=== PATIENT | female | born 1950 | race African-American/Black ===

== ENCOUNTER 2016-07-06 08:02 | Emergency (ER) | payer MEDICARE, MEDICAID ==
[~2016-07-06 08:02] MED LIST: LORTA5 PO; OMEP20CA5 PO; PROM25SU8 PO
[2016-07-06 08:11] VITALS: BP_SYST 211; BP_SYST 233; BP_DIAS 100; BP_DIAS 98; PULSE 90; RESP 15; TEMP 98.1; O2SAT 97
--- NOTE | 2016-07-06 08:21 | PD ---
HPI Chief Complaint: Headache Time Seen by Provider: 08:18 Travel History International Travel<30 days: No Contact w/Intl Traveler<30days: No Traveled to known affect area: No History of Present Illness HPI 65-year-old female came to the emergency room with history of headache. Her blood pressure in triage was 233 systolic. Patient says that the headache started yesterday at 8 PM while she was watching TV. It's like a pounding headache and everywhere hurts in her head. Currently the pain is 8 out of 10. She has had pounding headache every now and then but it has never been this bad in lasted this long. She is also seeing some black floating spots occasionally. They are the size of a mole she said. Patient has never been to a doctor in many years. She is not on any medications and she is a smoker. [facility] Past Medical History Narrative Medical List of her past medical history is reviewed from the nursing note. Medical History: Denies Significant Hx Hypertension: Yes ?: Not Menopausal: Yes Past Surgical History Other Surgery: Yes (cyst) Social History Alcohol Use: Yes (2 BEERS DAILY) Tobacco Use: Yes (1/2PPD) Substance Use: No Allergies-Medications (Allergen,Severity, Reaction): Coded Allergies: Penicillin (Verified Allergy, Severe, RASH, 07/06/16) White Fish (Verified Allergy, Severe, Rash, 07/06/16) throat swelling Uncoded Allergies: POWDERED GLOVES (Allergy, Severe, RASH, 09/18/11) Comments List of her allergies reviewed from the nursing note. Reported Meds & Prescriptions Reported Meds & Active Scripts Active Losartan-Hydrochlorothiazide 50-12.5 Mg Tab 1 Tab PO DAILY Narrative Medication List of her home medications reviewed from the nursing note. Review of Systems Except as stated in HPI: all other systems reviewed are Neg Physical Exam Narrative GENERAL: Awake, alert, mild distress SKIN: Warm and dry. HEAD: Atraumatic. Normocephalic. EYES: Pupils equal and round. No scleral icterus. No injection or drainage. ENT: No nasal bleeding or discharge. Mucous membranes pink and moist. NECK: Trachea midline. No JVD. CARDIOVASCULAR: Regular rate and rhythm. No murmur appreciated. RESPIRATORY: No accessory muscle use. Clear to auscultation. Breath sounds equal bilaterally. GASTROINTESTINAL: Abdomen soft, non-tender, nondistended. Hepatic and splenic margins not palpable. MUSCULOSKELETAL: No obvious deformities. No clubbing. No cyanosis. No edema. NEUROLOGICAL: Awake and alert. No obvious cranial nerve deficits. Motor grossly within normal limits. Normal speech. PSYCHIATRIC: Appropriate mood and affect; insight and judgment normal. Data Data Last Documented VS Vital Signs Date Time Temp Pulse Resp B/P Pulse Ox O2 Delivery O2 Flow Rate FiO2 07/06/16 10:19 70 16 163/82 97 Room Air 07/06/16 08:11 98.1 Orders Complete Blood Count With Diff (07/06/16 08:25) Basic Metabolic Panel (Bmp) (07/06/16 08:25) Ct Brain W/O Iv Contrast(Rout) (07/06/16 08:25) Ecg Monitoring (07/06/16 08:25) Iv Access Insert/Monitor (07/06/16 08:25) Oximetry (07/06/16 08:25) Sodium Chloride 0.9% Flush (Ns Flush) (07/06/16 08:30) Labetalol Inj (Trandate Inj) (07/06/16 08:30) Acetaminophen (Tylenol) (07/06/16 08:30) Electrocardiogram (07/06/16 ) Losartan (Cozaar) (07/06/16 09:30) Labs Laboratory Tests Test 07/06/16 08:30 White Blood Count 4.8 TH/MM3 Red Blood Count 4.78 MIL/MM3 Hemoglobin 13.8 GM/DL Hematocrit 41.5 % Mean Corpuscular Volume 86.9 FL Mean Corpuscular Hemoglobin 29.0 PG Mean Corpuscular Hemoglobin 33.4 % Concent Red Cell Distribution Width 15.0 % Platelet Count 176 TH/MM3 Mean Platelet Volume 8.4 FL Neutrophils (%) (Auto) 50.7 % Lymphocytes (%) (Auto) 38.2 % Monocytes (%) (Auto) 9.0 % Eosinophils (%) (Auto) 1.4 % Basophils (%) (Auto) 0.7 % Neutrophils # (Auto) 2.4 TH/MM3 Lymphocytes # (Auto) 1.8 TH/MM3 Monocytes # (Auto) 0.4 TH/MM3 Eosinophils # (Auto) 0.1 TH/MM3 Basophils # (Auto) 0.0 TH/MM3 CBC Comment DIFF FINAL Differential Comment Sodium Level 138 MEQ/L Potassium Level 3.7 MEQ/L Chloride Level 105 MEQ/L Carbon Dioxide Level 26.9 MEQ/L Anion Gap 6 MEQ/L Blood Urea Nitrogen 13 MG/DL Creatinine 0.89 MG/DL Estimat Glomerular Filtration 77 ML/MIN Rate Random Glucose 124 MG/DL Calcium Level 8.4 MG/DL [facility] Medical Decision Making Medical Screen Exam Complete: Yes Emergency Medical Condition: Yes Medical Record Reviewed: Yes Interpretation(s) Twelve-lead EKG was reviewed by me. Normal sinus rhythm, normal axis, right bundle branch block. Heart rate of 81 bpm. Differential Diagnosis Hypertensive crisis, subarachnoid hemorrhage Narrative Course 8:34 AM patient was given IV labetalol 20 mg and by mouth Tylenol for the headache. Awaiting for the blood test and the CAT scan to be done and resulted. 9:30 AM blood test results of back and within normal limit. Head CT is negative. Blood pressure has come down to 162 systolic. Ordered a dose of losartan and I will send her home with losartan/hydrochlorothiazide prescription. Patient will require to be seen by primary care. Patient now says her headache is much better. I'm comfortable discharging her. Procedures EKG Prior to Arrival: No Diagnosis Primary Impression: Hypertensive urgency Additional Impressions: Headache Qualified Code: R51 - Acute intractable headache, unspecified headache type Floaters in visual field Qualified Code: H43.393 - Floaters in visual field, bilateral Referrals: [facility] 1 week Departure Forms: Tests/Procedures, Work Release Enter return to work date: Jul 08, 2016 Additional Instructions: Please return to the ER if the condition worsens or any other new concerns. Otherwise follow-up with the group whose name and number has been provided to you. Take the medication as per the prescription direction. Check blood pressure routinely. Med/Other Pt SpecificInfo: Prescription(s) given Scripts Losartan-Hydrochlorothiazide 50-12.5 Mg Tab1 Tab PO DAILY #30 TAB Ref 0 Prov:Gustabo Love MD 07/06/16 Disposition: 01 DISCHARGE HOME Condition: Stable Gustabo Love MD Jul 06, 2016 08:21 Gustabo Love MD Jul 06, 2016 08:21
[2016-07-06 08:28] VITALS: RESP 16; O2SAT 98
[2016-07-06] MEDS ORDERED: ACETAMINOPHEN 325 MG TAB PO ONE (08:30)
[2016-07-06] MEDS ORDERED: LABETALOL HCL 100 MG/20 ML VIAL IV PUSH ONE (08:30)
[2016-07-06] MEDS ORDERED: SODIUM CHLORIDE 0.9% FLUSH 5 ML FLUSH IVF PRN (08:30)
[2016-07-06 08:46] LABS: AUTOMATED NEUTROPHIL # 2.4 TH/MM3 (1.8-7.7); BASOPHIL % 0.7 % (0.0-2.0); EOSINOPHIL # 0.1 TH/MM3 (0-0.4); EOSINOPHIL % 1.4 % (0.0-4.0); HEMATOCRIT 41.5 % (35.0-46.0); HEMO FLAGS DIFF FINAL; LYMPH % 38.2 % (9.0-44.0); LYMPHOCYTE # 1.8 TH/MM3 (1.0-4.8); MEAN CELL VOLUME 86.9 FL (80.0-100.0); MEAN CORPUSCULAR HGB CONC 33.4 % (32.0-36.0); NEUT % 50.7 % (16.0-70.0); PLATELET COUNT 176 TH/MM3 (150-450); RED BLOOD COUNT 4.78 MIL/MM3 (4.00-5.30); WHITE BLOOD COUNT 4.8 TH/MM3 (4.0-11.0)
[2016-07-06 09:02] LABS: BICARBONATE 26.9 MEQ/L (21.0-32.0); POTASSIUM 3.7 MEQ/L (3.5-5.1)
--- NOTE | 2016-07-06 09:09 | RADRPT ---
EXAM DATE/TIME: 07/06/2016 08:46 [facility] COMPARISON: No previous studies available for comparison. INDICATIONS : Hypertension, cephalgia. RADIATION DOSE: 56.35 CTDIvol (mGy) MEDICAL HISTORY : Hypertension. SURGICAL HISTORY : None. ENCOUNTER: Initial ACUITY: 1 day PAIN SCALE: 5/10 LOCATION: Bilateral cranial TECHNIQUE: Multiple contiguous axial images were obtained of the head. Using automated exposure control and adj ustment of the mA and/or kV according to patient size, radiation dose was kept as low as reasonably a chievable to obtain optimal diagnostic quality images. FINDINGS: CEREBRUM: The ventricles are normal for age. No evidence of midline shift, mass lesion, hemorrhage or acute in farction. No extra-axial fluid collections are seen. POSTERIOR FOSSA: The cerebellum and brainstem are intact. The 4th ventricle is midline. The cerebellopontine angle i s unremarkable. EXTRACRANIAL: The visualized portion of the orbits is intact. SKULL: The calvaria is intact. No evidence of skull fracture. CONCLUSION: Unremarkable examination. Lexa Gan MD on July 06, 2016 at 9:07 Board Certified Radiologist. This report was verified electronically.
[2016-07-06] MEDS ORDERED: LOSA50TA2 PO (09:29)
[2016-07-06] MEDS ORDERED: LOSARTAN 50 MG TAB PO ONE (09:30)
[2016-07-06 10:19] VITALS: BP 163/82; PULSE 70; RESP 16; O2SAT 97
--- NOTE | 2016-07-06 20:50 | EKG ---
Date Performed: 07/06/2016 Time Performed: 08:23:51 PTAGE: 65 years EKG: Sinus rhythm POSSIBLE INFERIOR MYOCARDIAL INFARCTION BORDERLINE ECG PREVIOUS TRACING : 04/06/2012 12.16 DOCTOR: Delgado Mosher Interpretating Date/Time 07/06/2016 20:50:10
== END 2016-07-06 10:50 | disposition home or self-care (01) ==
LOC: NEPE 08:02
DX: I16.0 Hypertensive urgency (principal); R51 Headache; H43.393 Other vitreous opacities, bilateral; R94.31 Abnormal electrocardiogram [ECG] [EKG]; F17.200 Nicotine dependence, unspecified, uncomplicated
CPT/HCPCS: 70450; 80048; 85025; 93005; 96374

== ENCOUNTER 2016-12-06 08:52 | Emergency (ER) | payer MEDICARE, MEDICAID ==
[~2016-12-06] VITALS: Ht 165.1 cm; Wt 75.0 kg
[~2016-12-06 08:52] MED LIST changes: -LORTA5 PO; +LOSA50TA2 PO; -OMEP20CA5 PO; -PROM25SU8 PO
[2016-12-06 08:53] VITALS: BP 177/77; PULSE 66; RESP 14; TEMP 97.9; O2SAT 97
[2016-12-06] MEDS ORDERED: SODIUM CHLOR 0.9% 1000 ML INJ 1,000 ML IV SCH (09:31)
--- NOTE | 2016-12-06 09:37 | PD ---
HPI Chief Complaint: Abdominal Pain Time Seen by Provider: 09:26 Travel History International Travel<30 days: No Contact w/Intl Traveler<30days: No Traveled to known affect area: No History of Present Illness HPI 66 years old female complains of abdominal pain and nausea vomiting. Patient states the symptoms started this morning. Patient states the pain is severe cramping and sharp pain diffuse over the abdomen. Patient denies any pain radiation. Patient denies any fever chills. Patient denies any coughing congestion. Patient states that the pain mostly localized to the upper abdomen. Patient denies any dysuria or frequency. Patient denies any vaginal discharge or bleeding. Patient denies any history GI issues in the past. Patient has history hypertension. On a scale of 1-10 the pain is a 10. PFSH Past Medical History Hypertension: Yes ?: Not Menopausal: Yes Past Surgical History Other Surgery: Yes (cyst) Social History Alcohol Use: Yes (2 BEERS DAILY) Tobacco Use: Yes (1/2PPD) Substance Use: No Allergies-Medications (Allergen,Severity, Reaction): Coded Allergies: Penicillin (Verified Allergy, Severe, RASH, 12/06/16) White Fish (Verified Allergy, Severe, Rash, 12/06/16) throat swelling Uncoded Allergies: POWDERED GLOVES (Allergy, Severe, RASH, 09/18/11) Reported Meds & Prescriptions Reported Meds & Active Scripts Active Review of Systems General / Constitutional: No: Fever Eyes: No: Visual changes HENT: No: Headaches Cardiovascular: No: Chest Pain or Discomfort Respiratory: No: Shortness of Breath Gastrointestinal: Positive: Nausea, Vomiting, Abdominal Pain Genitourinary: No: Dysuria Musculoskeletal: No: Pain Skin: No Rash Neurologic: No: Weakness Psychiatric: No: Depression Endocrine: No: Polydipsia Hematologic/Lymphatic: No: Easy Bruising Physical Exam Narrative GENERAL: Well-nourished, well-developed patient. SKIN: Focused skin assessment warm/dry. HEAD: Normocephalic. EYES: No scleral icterus. No injection or drainage. NECK: Supple, trachea midline. No JVD or lymphadenopathy. CARDIOVASCULAR: Regular rate and rhythm without murmurs, gallops, or rubs. RESPIRATORY: Breath sounds equal bilaterally. No accessory muscle use. GASTROINTESTINAL: Abdomen soft, nondistended. Patient has moderate tenderness and palpation of epigastric area and upper abdomen. No rebound tenderness. No mass. MUSCULOSKELETAL: No cyanosis, or edema. BACK: Nontender without obvious deformity. No CVA tenderness. Neurologic exam normal. Data Data Last Documented VS Vital Signs Date Time Temp Pulse Resp B/P Pulse Ox O2 Delivery O2 Flow Rate FiO2 12/06/16 12:42 78 19 136/83 97 Room Air 12/06/16 08:53 97.9 Orders Complete Blood Count With Diff (12/06/16 09:31) Comprehensive Metabolic Panel (12/06/16:31) Lipase (12/06/16 09:31) Prothrombin Time / Inr (Pt) (12/06/16:31) Act Partial Throm Time (Ptt) (12/06/16 09:31) Urinalysis - C+S If Indicated (12/06/16 09:31) Ct Abd/Pel W Iv Contrast(Rout) (12/06/16 09:31) Iv Access Insert/Monitor (12/06/16 09:31) Ecg Monitoring (12/06/16 09:31) Oximetry (12/06/16 09:31) Morphine Inj (Morphine Inj) (12/06/16 09:45) Ondansetron Inj (Zofran Inj) (12/06/16 09:45) Pantoprazole Inj (Protonix Inj) (12/06/16 09:45) Sodium Chlor 0.9% 1000 Ml Inj (Ns 1000 M (12/06/16 09:31) Electrocardiogram (12/06/16 09:31) Iohexol 350 Inj (Omnipaque 350 Inj) (12/06/16 11:27) Ketorolac Inj (Toradol Inj) (12/06/16 12:30) Al-Mag Hy-Si 40-40-4 Mg/Ml Liq (Mag-Al P (12/06/16 12:30) Bggth-Tpmawz-Zkmvvd-Pb Liq ( Liq (12/06/16 12:30) Labs Laboratory Tests Test 12/06/16 09:35 White Blood Count 10.4 TH/MM3 Red Blood Count 4.64 MIL/MM3 Hemoglobin 13.3 GM/DL Hematocrit 40.9 % Mean Corpuscular Volume 88.2 FL Mean Corpuscular Hemoglobin 28.7 PG Mean Corpuscular Hemoglobin 32.6 % Concent Red Cell Distribution Width 14.8 % Platelet Count 192 TH/MM3 Mean Platelet Volume 8.7 FL Neutrophils (%) (Auto) 76.2 % Lymphocytes (%) (Auto) 17.6 % Monocytes (%) (Auto) 5.4 % Eosinophils (%) (Auto) 0.5 % Basophils (%) (Auto) 0.3 % Neutrophils # (Auto) 7.9 TH/MM3 Lymphocytes # (Auto) 1.8 TH/MM3 Monocytes # (Auto) 0.6 TH/MM3 Eosinophils # (Auto) 0.0 TH/MM3 Basophils # (Auto) 0.0 TH/MM3 CBC Comment DIFF FINAL Differential Comment Prothrombin Time 10.0 SEC Prothromb Time International 0.9 RATIO Ratio Activated Partial 20.7 SEC Thromboplast Time Sodium Level 139 MEQ/L Potassium Level 4.4 MEQ/L Chloride Level 107 MEQ/L Carbon Dioxide Level 21.2 MEQ/L Anion Gap 11 MEQ/L Blood Urea Nitrogen 15 MG/DL Creatinine 0.83 MG/DL Estimat Glomerular Filtration 83 ML/MIN Rate Random Glucose 158 MG/DL Calcium Level 9.3 MG/DL Total Bilirubin 0.2 MG/DL Aspartate Amino Transf 24 U/L (AST/SGOT) Alanine Aminotransferase 28 U/L (ALT/SGPT) Alkaline Phosphatase 62 U/L Total Protein 7.6 GM/DL Albumin 3.8 GM/DL Lipase 138 U/L [facility] Medical Decision Making Medical Screen Exam Complete: Yes Emergency Medical Condition: Yes Interpretation(s) Last Impressions Abdomen/Pelvis CT 12/06/16 0931 Signed Impressions: Service Date/Time: Tuesday, December 06, 2016 11:10 - CONCLUSION: Mildly distended small bowel in the left abdomen and left pelvis likely involving the mid and distal jejunum. The cause of this distention is not seen. There is mild induration of the mesentery in the left midabdomen adjacent to this region. Enteritis can be considered. Kenneth Kaye MD 12:19 PM. CBC within normal limit. CMP within normal limit. Differential Diagnosis Differential diagnosis including gastritis, PUD, pancreatitis, cholecystitis, colitis, UTI, pyelonephritis, nephrolithiasis. Narrative Course 66 years old female with upper abdominal pain, nausea vomiting. Normal saline solution 1 25 cc an hour. Morphine 2 mg IV. 4 mg IV. Protonix 40 mg IV. Toradol 30 mg IV. Maalox 30 cc by mouth. 10 cc by mouth. Diagnosis Primary Impression: Gastroenteritis Patient Instructions: General Instructions Additional Instructions: Clear fluids today and advance diet as tolerated. Take medications as needed for pain. Follow-up with personal physician and GI specialist. Return if persistent problem or worse. Med/Other Pt SpecificInfo: Prescription(s) given Scripts Dicyclomine (Bentyl)10 Mg Cap10 Mg PO TID PRN (PAIN SCALE 1 TO 10) #15 CAP Ref 0 Prov:Jossue Mckinney MD 12/06/16 Promethazine (Phenergan)25 Mg [id number] Mg PO Q6H PRN (NAUSEA OR VOMITING) #10 TAB Ref 0 Prov:Jossue Mckinney MD 12/06/16 Ondansetron Odt (Zofran Odt)4 Mg Tab4 Mg SL Q6HR PRN (Nausea/Vomiting) #10 TAB Prov:Jossue Mckinney MD 12/06/16 Disposition: 01 DISCHARGE HOME Condition: Stable Jossue Mckinney MD Dec 06, 2016 09:37
[2016-12-06 09:45] VITALS: O2SAT 98
[2016-12-06] MEDS ORDERED: MORPHINE SULFATE 4 MG/ML INJ IV PUSH ONE (09:45)
[2016-12-06] MEDS ORDERED: ONDANSETRON HCL 4 MG/2 ML VIAL IVP ONE (09:45)
[2016-12-06] MEDS ORDERED: PANTOPRAZOLE SODIUM 40 MG VIAL IVP ONE (09:45)
[2016-12-06 09:47] LABS: AUTOMATED NEUTROPHIL # 7.9 TH/MM3 (1.8-7.7); BASOPHIL % 0.3 % (0.0-2.0); EOSINOPHIL % 0.5 % (0.0-4.0); HEMATOCRIT 40.9 % (35.0-46.0); HEMO FLAGS DIFF FINAL; LYMPH % 17.6 % (9.0-44.0); LYMPHOCYTE # 1.8 TH/MM3 (1.0-4.8); MEAN CELL VOLUME 88.2 FL (80.0-100.0); MEAN CORPUSCULAR HEMOGLOBIN 28.7 PG (27.0-34.0); MEAN CORPUSCULAR HGB CONC 32.6 % (32.0-36.0); MONO % 5.4 % (0.0-8.0); NEUT % 76.2 % (16.0-70.0); PLATELET COUNT 192 TH/MM3 (150-450); RED BLOOD COUNT 4.64 MIL/MM3 (4.00-5.30); RED CELL DISTRIBUTION WIDTH 14.8 % (11.6-17.2); WHITE BLOOD COUNT 10.4 TH/MM3 (4.0-11.0)
[2016-12-06 10:00] LABS: ALT (GPT) 28 U/L (10-53)
[2016-12-06 10:02] LABS: ALKALINE PHOSPHATASE 62 U/L (45-117); TOTAL BILIRUBIN ADULT 0.2 MG/DL (0.2-1.0)
[2016-12-06 10:04] LABS: INTERNATIONAL NORMALIZED RATIO 0.9 RATIO
[2016-12-06 10:05] LABS: ANION GAP 11 MEQ/L (5-15); AST (GOT) 24 U/L (15-37); BICARBONATE 21.2 MEQ/L (21.0-32.0); BLOOD UREA NITROGEN 15 MG/DL (7-18); CHLORIDE 107 MEQ/L (98-107); GLOMERULAR FILTRATION RATE 83 ML/MIN (>89); POTASSIUM 4.4 MEQ/L (3.5-5.1); SODIUM (NA) 139 MEQ/L (136-145)
[2016-12-06 10:08] LABS: APTT (PATIENT) 20.7 SEC (24.3-30.1)
[2016-12-06 10:30] VITALS: BP 140/64; PULSE 64; RESP 19; O2SAT 97
[2016-12-06] MEDS ORDERED: IOHEXOL 350 MG/ML 10 ML VIAL (for RAD DIAG) IV ONE (11:27)
--- NOTE | 2016-12-06 11:49 | RADRPT ---
EXAM DATE/TIME: 12/06/2016 11:10 [facility] COMPARISON: No previous studies available for comparison. INDICATIONS : Diffuse abdominal pain since tis morning. IV CONTRAST: 64 cc Omnipaque 350 (iohexol) IV ORAL CONTRAST: No oral contrast ingested. RADIATION DOSE: 8.71 CTDIvol (mGy) MEDICAL HISTORY : None SURGICAL HISTORY : None. ENCOUNTER: Initial ACUITY: 1 day PAIN SCALE: 10/10 LOCATION: middle abdomen TECHNIQUE: Volumetric scanning of the abdomen and pelvis was performed. Using automated exposure control and ad justment of the mA and/or kV according to patient size, radiation dose was kept as low as reasonably achievable to obtain optimal diagnostic quality images. FINDINGS: LOWER LUNGS: The visualized lower lungs are clear. LIVER: Homogeneous density without lesion. There is no dilation of the biliary tree. No calcified gallston es. SPLEEN: Normal size without lesion. PANCREAS: Within normal limits. KIDNEYS: Normal in size and shape. There is no mass, stone or hydronephrosis. ADRENAL GLANDS: Within normal limits. VASCULAR: There is no aortic aneurysm. Minimal vascular calcifications are seen. BOWEL/MESENTERY: There is mildly dilated small bowel in the left midabdomen and left upper pelvis. The small bowel jaycob sures up to 3.4 cm in diameter. A transition point is not seen. There is some minimal induration of t he mesentery seen in the left midabdomen adjacent to the distended small bowel. The more proximal and distal aspects of small bowel are not distended. The colon is not distended. The appendix is normal. ABDOMINAL WALL: Within normal limits. RETROPERITONEUM: There is no lymphadenopathy. BLADDER: No wall thickening or mass. REPRODUCTIVE: Within normal limits. INGUINAL: There is no lymphadenopathy or hernia. MUSCULOSKELETAL: There is degenerative change of the lower lumbar spine. CONCLUSION: Mildly distended small bowel in the left abdomen and left pelvis likely involving the mid and distal jejunum. The cause of this distention is not seen. There is mild induration of the mesentery in the l eft midabdomen adjacent to this region. Enteritis can be considered. Kenneth Kaye MD on December 06, 2016 at 11:37 Board Certified Radiologist. This report was verified electronically.
--- NOTE | 2016-12-06 12:21 | EKG ---
Date Performed: 12/06/2016 Time Performed: 09:55:46 PTAGE: 66 years EKG: Sinus rhythm PROBABLE INFERIOR MYOCARDIAL INFARCTION ABNORMAL ECG PREVIOUS TRACING : 07/06/2016 08.23 No significant change from previous tracing noted. . DOCTOR: Jose David Rowe Interpretating Date/Time 12/06/2016 12:20:06
[2016-12-06] MEDS ORDERED: ATROPINE/SCOPOLAM/HYOSCYAM/PB ELIXIR 10 ML CUP PO ONE (12:30)
[2016-12-06] MEDS ORDERED: KETOROLAC TROMETHAMINE 30 MG/ML (IVP) VIAL IV PUSH ONE (12:30)
[2016-12-06] MEDS ORDERED: ALUMINUM/MAGNESIUM/SIMETH 30 ML CUP PO ONE (12:30)
[2016-12-06 12:42] VITALS: BP 136/83; PULSE 78; RESP 19; O2SAT 97
[2016-12-06] MEDS ORDERED: DICY10 PO (13:32)
[2016-12-06] MEDS ORDERED: ZOFR4TAB3 SL (13:32)
[2016-12-06] MEDS ORDERED: PROM25TA10 PO (13:32)
[2016-12-06 13:58] LABS: BLOOD, URINE NEG (NEG); COMMENT (UR) CULT NOT INDICATED; CULTURE IF INDICATED CULT NOT INDICATED; GLUCOSE,URINE TRACE mg/dL (NEG); KETONE, URINE 10 mg/dL (NEG); MUCUS URINE FEW /lpf (OCC); NITRITE,URINE NEG (NEG); PH, URINE 6.5 (5.0-8.5); SQUAMOUS EPITHELIAL CELL URINE 1 /hpf (0-5); URINE COLOR YELLOW (YELLW/STRAW)
[2016-12-06 14:16] VITALS: BP 130/85
== END 2016-12-06 14:19 | disposition home or self-care (01) ==
LOC: NEPD 08:52
DX: K52.9 Noninfective gastroenteritis and colitis, unspecified (principal); I10 Essential (primary) hypertension; F17.200 Nicotine dependence, unspecified, uncomplicated; Z88.0 Allergy status to penicillin
CPT/HCPCS: 74177; 80053; 81001; 83690; 85025; 85610; 85730; 93005; 96361; 96374; 96375; 99285; C9113; J1885; J2270; J2405; J7030; Q9967